=== PATIENT | female | born 1965 | race Caucasian/White ===

== ENCOUNTER 2019-12-24 11:55 | Outpatient (REF) | payer OTHER, SELFPAY ==
[2019-12-24 12:26] LABS: COVID-19 Test Negative (Negative)
== END 2019-12-24 11:56 | disposition home or self-care (01) ==
LOC: HO.LAB 11:55
PROVIDERS: PCP Internal Medicine; Visit Provider Internal Medicine
DX: Z20.828 Contact with and (suspected) exposure to other viral communicable diseases (principal)
CPT/HCPCS: 87635

== ENCOUNTER 2020-04-28 14:39 | Outpatient (REF) | payer OTHER, SELFPAY ==
--- NOTE | ~2020-04-28 | XR_ITS ---
EXAMINATION: XR FOOT, RIGHT CLINICAL INFORMATION: Pain right foot. COMPARISON: None TECHNIQUE: AP, lateral, and oblique views of the right foot. FINDINGS: There is no fracture, dislocation or destructive process. Mild degenerative changes involve the 1st MTP joint with mild joint narrowing and lateral spurring. There is mild medial bunion 1st MTP. No hallux valgus. Small exostosis present lateral distal phalanx. The remainder of the joints show no focal narrowing or erosive changes. The retrocalcaneal recess is preserved. There are posterior and plantar calcaneal spurs. There is a small solitary benign-appearing sclerotic lesion medial neck 5th metatarsal without expansion or periostitis, possibly bone island or sclerotic enchondroma. XR/XR foot RT min 3V IMPRESSION: 1. Mild degenerative changes 1st MTP. No erosive changes. 2. Small posterior and plantar calcaneal spurs. 3. Benign-appearing small sclerotic lesion medial neck fifth metatarsal, possibly bone island or sclerotic enchondroma.
== END 2020-04-28 14:40 | disposition home or self-care (01) ==
LOC: HO.XRAY 14:39
PROVIDERS: PCP Internal Medicine; Visit Provider Orthopaedic Surgery
DX: M79.671 Pain in right foot (principal)
CPT/HCPCS: 73630

== ENCOUNTER 2020-06-19 08:05 | Outpatient (REF) | payer OTHER, SELFPAY ==
[2020-06-19 08:51] LABS: MANUAL DIFF FLAG NO
[2020-06-19 09:01] LABS: Basophils Absolute Auto 0.1 X10*3/uL (0.0-0.2); Basophils Percent Auto 1.5 % (0-2); Eosinophils Absolute Auto 0.5 X10*3/uL (0.0-0.4); Eosinophils Percent Auto 8.7 % (0-4); Hematocrit 42.5 % (37-47); Imm Gran Abs Auto 0.01 X10*3/uL (0.00-0.03); Imm Gran Pct Auto 0.2 % (0.0-0.4); Lymphocytes Absolute Auto 1.6 X10*3/uL (1.2-4.9); Lymphocytes Percent Auto 29.9 % (20-40); Mean Corpuscular HGB Conc 32.9 g/dl (31.0-35.0); Mean Corpuscular Hemoglobin 30.7 pg (27.0-33.0); Mean Corpuscular Volume 93.2 fL (80-98); Monocytes Absolute Auto 0.4 X10*3/uL (0.1-1.2); Neutrophils Absolute Auto 2.7 X10*3/uL (2.0-8.3); Neutrophils Percent Auto 51.7 % (45-73); Platelet Count 256 X10*3/uL (160-400); Red Blood Count 4.56 X10*6/uL (4.20-5.50); White Blood Count 5.3 X10*3/uL (4.8-10.8)
[2020-06-19 09:14] LABS: Alanine Aminotransferase 16 U/L (0-31); Albumin Level 4.3 g/dL (3.5-5.0); Alkaline Phosphatase 70 U/L (39-117); Anion Gap 14 (12-20); Aspartate Amino Transferase 19 U/L (5-31); Bilirubin Total 0.8 mg/dL (0.0-1.0); Blood Urea Nitrogen 10 mg/dL (9-16); Calcium 9.7 mg/dL (8.4-10.2); Carbon Dioxide 30 mmol/L (22-29); Chloride 101 mmol/L (96-108); Cholesterol 278 mg/dL; Estimated Glomerular Filt Rate > 60; Glucose Random 97 mg/dL (60-115); HDL Cholesterol 74 mg/dL; LDL Cholesterol Calculated 179 mg/dl; Potassium 3.9 mmol/L (3.3-5.1); Sodium 141 mmol/L (135-145); Total Protein 7.3 g/dL (6.5-8.0); Triglycerides 128 mg/dL
[2020-06-19 09:34] LABS: Thyroid Stimulating Hormone 1.38 uIU/mL (0.32-4.0); Vitamin D 25-OH Total 38.4 ng/mL (>30)
[2020-06-19 09:50] LABS: Glucose Urine UA NEG (NEG); Leukocyte Esterase Urine NEG (NEG); Nitrite Urine NEG (NEG); Urine Blood NEG (NEG); Urine Ketones NEG (NEG); Urine Protein NEG (NEG-TRACE)
[2020-06-19 09:51] LABS: Appearance Urine CLEAR; Color Urine STRAW
== END 2020-06-19 08:06 | disposition home or self-care (01) ==
LOC: HO.LAB 08:05
PROVIDERS: Absent Provider Internal Medicine; PCP Internal Medicine; Visit Provider Nurse Practitioner Family
DX: Z01.810 Encounter for preprocedural cardiovascular examination (principal); I47.2 Ventricular tachycardia; I10 Essential (primary) hypertension; E78.2 Mixed hyperlipidemia; E55.9 Vitamin D deficiency, unspecified; E78.5 Hyperlipidemia, unspecified; Z98.890 Other specified postprocedural states
CPT/HCPCS: 36415; 80053; 80061; 81003; 82306; 84443; 85025; 93005

== ENCOUNTER 2021-02-02 08:16 | Outpatient (REF) | payer OTHER, SELFPAY ==
[2021-02-02 09:11] LABS: Alanine Aminotransferase 18 U/L (0-31); Albumin Level 3.9 g/dL (3.5-5.0); Alkaline Phosphatase 63 U/L (39-117); Anion Gap 9 (12-20); Aspartate Amino Transferase 18 U/L (5-31); Bilirubin Total 0.4 mg/dL (0.0-1.0); Blood Urea Nitrogen 16 mg/dL (9-16); Calcium 9.7 mg/dL (8.4-10.2); Carbon Dioxide 32 mmol/L (22-29); Chloride 102 mmol/L (96-108); Cholesterol 252 mg/dL; Estimated Glomerular Filt Rate > 60; Glucose Random 99 mg/dL (60-115); HDL Cholesterol 75 mg/dL; LDL Cholesterol Calculated 155 mg/dl; Sodium 139 mmol/L (135-145); Total Protein 6.7 g/dL (6.5-8.0); Triglycerides 113 mg/dL
== END 2021-02-02 08:17 | disposition home or self-care (01) ==
LOC: HO.LAB 08:16
PROVIDERS: Absent Provider Internal Medicine; PCP Internal Medicine; Visit Provider Orthopaedic Surgery
DX: E78.00 Pure hypercholesterolemia, unspecified (principal); I10 Essential (primary) hypertension
CPT/HCPCS: 36415; 80053; 80061; 83735

== ENCOUNTER 2021-02-17 13:08 | Outpatient (REF) | payer OTHER, SELFPAY ==
[2021-02-17 13:18] LABS: MANUAL DIFF FLAG NO
[2021-02-17 13:23] LABS: Basophils Absolute Auto 0.1 X10*3/uL (0.0-0.2); Eosinophils Absolute Auto 0.4 X10*3/uL (0.0-0.4); Eosinophils Percent Auto 5.1 % (0-4); Hematocrit 42.6 % (37.0-47.0); Hemoglobin 14.3 g/dl (12.0-16.0); Imm Gran Abs Auto 0.03 X10*3/uL (0.00-0.03); Imm Gran Pct Auto 0.4 % (0.0-0.4); Lymphocytes Absolute Auto 2.4 X10*3/uL (1.2-4.9); Lymphocytes Percent Auto 33.7 % (20-40); Mean Corpuscular HGB Conc 33.6 g/dl (31.0-35.0); Mean Corpuscular Hemoglobin 32.1 pg (27.0-33.0); Mean Corpuscular Volume 95.7 fL (80.0-98.0); Mean Platelet Volume 10.6 fL (9.4-12.3); Monocytes Absolute Auto 0.5 X10*3/uL (0.1-1.2); Monocytes Percent Auto 6.7 % (2-11); Neutrophils Absolute Auto 3.7 x10*3/uL (2.0-8.3); Neutrophils Percent Auto 53.1 % (45-73); Platelet Count 271 X10*3/uL (160-400); Red Blood Count 4.45 X10*6/uL (4.20-5.50); Red Cell Distribution Width 12.1 % (11.0-16.0)
== END 2021-02-17 13:09 | disposition home or self-care (01) ==
LOC: HO.LAB 13:08
PROVIDERS: PCP Internal Medicine; Visit Provider Internal Medicine
DX: Z01.818 Encounter for other preprocedural examination (principal); I10 Essential (primary) hypertension
CPT/HCPCS: 36415; 85025

== ENCOUNTER 2021-12-02 12:52 | Day surgery (SDC) | payer OTHER, SELFPAY ==
[2021-11-25 14:19] VITALS: BMI 32.3
--- NOTE | 2021-12-01 12:09 | HO.ANESPROP2 ---
Documented by User: Balbina Elizondo NP 12/01/21 12:09 HPI - Anesthesia Eval Consult details Narrative: 56yo F for Colonoscopy PMFSH Active Problems Active Problems: All Active Problems (Updated 06/19/20 @ 12:45 by Kelton Novoa MD) Preoperative cardiovascular examination (Acute) RVOT ventricular tachycardia (Acute) HTN (hypertension) (Acute) Past Medical History Medical History HTN (hypertension) RVOT ventricular tachycardia Family History Family History Father CVD (cardiovascular disease) Mother Cancer Surgical History Surgical History H/O colonoscopy History of bunionectomy History of cardiac radiofrequency ablation Hx of arthroscopy of knee Hx of dilation and curettage Hx of shoulder surgery Hx of tubal ligation Social History Social History Patient Tobacco Use Status: Former Tobacco user Quit Date: >10 years ago Tobacco use type: Cigarette Use of substances other than those prescribed or required for medical reasons: No Are you DNR?: No Advance Directives: No Advance Directives Information Provided: Yes Meds Allergies Allergy/AdvReac Type Severity Reaction Status Date / Time ibuprofen [Ibuprofen] Allergy Mild GI UPSET Unverified 11/07/19 15:32 NSAID (execpt aleve) Allergy Unknown Irritates Uncoded 03/10/16 00:00 stomach Home Medications Medication Instructions Recorded Confirmed Last Taken Type cholecalciferol (vitamin D3) 25 25 mcg PO DAILY 06/19/20 11/25/21 Unknown History mcg (1,000 unit) capsule Exam Exam Date and Time: December 01, 2021 1209 Height,Weight and Vital Signs: Height 5 ft 5 in Weight 87.997 kg Assessment and Plan Assessment Anesthesia Assessment: Chart Reviewed Documented by User: Christian Doherty MD 12/02/21 13:45 [facility] Past Medical History Medical History HTN (hypertension) RVOT ventricular tachycardia Family History Family History Father CVD (cardiovascular disease) Mother Cancer Family history of problems with anesthesia: No Surgical History Surgical History H/O colonoscopy History of bunionectomy History of cardiac radiofrequency ablation Hx of arthroscopy of knee Hx of dilation and curettage Hx of shoulder surgery Hx of tubal ligation History of Problems with Anesthesia: No Social History Social History Patient Tobacco Use Status: Former Tobacco user Quit Date: >10 years ago Tobacco use type: Cigarette Use of substances other than those prescribed or required for medical reasons: No Are you DNR?: No Advance Directives: No Advance Directives Information Provided: Yes Meds Allergies Allergy/AdvReac Type Severity Reaction Status Date / Time ibuprofen [Ibuprofen] Allergy Mild GI UPSET Unverified 11/07/19 15:32 NSAID (execpt aleve) Allergy Unknown Irritates Uncoded 03/10/16 00:00 stomach Home Medications Medication Instructions Recorded Confirmed Last Taken Type cholecalciferol (vitamin D3) 25 25 mcg PO DAILY 06/19/20 11/25/21 Unknown History mcg (1,000 unit) capsule Exam Airway Mallampati Class: II TM Dist: >3cm Neck ROM: Full Loose/Missing/Broken Teeth: Yes (temporary crown upper molar not loose) Heart: rrr+s1s2 Lungs: cta b/l Assessment and Plan Assessment Anesthesia Assessment: Anesthesia Plan Discussed Final Anesthetic Review Family History of Problems with Anesthesia: No History of Problems with Anesthesia: No NPO: Yes ASA Class: II Final Preanesthetic Review: No Changes in Pt Med Stat, Meds/Allgs Chart Reviewed, Consent Obtained/Reviewed and Anes Risks/Benef Reviewed Patient Risk: Intermediate Procedure Risk: Low Assessment/Block/Sedation in SS: Assess/Block/Sedation-SS Anesthetic Plan Anesthetic Plan: MAC: and Agree w/ Assess. and Plan Disposition: Standard PACU
[2021-12-02 13:28] VITALS: BMI 31.6
[2021-12-02 13:33] VITALS: BP 145/82; PULSE 73; RESP 16; TEMP 36.6; O2SAT 98
[2021-12-02] MEDS: Lactated Ringers 1,000 ML 100 ML IVCONT (13:51)
--- NOTE | 2021-12-02 14:28 | HO.ANESPROP2 ---
[facility] Active Problems Active Problems: All Active Problems (Updated 06/19/20 @ 12:45 by Kelton Novoa MD) Preoperative cardiovascular examination (Acute) RVOT ventricular tachycardia (Acute) HTN (hypertension) (Acute) Past Medical History Medical History HTN (hypertension) RVOT ventricular tachycardia Family History Family History Father CVD (cardiovascular disease) Mother Cancer Family history of problems with anesthesia: No Surgical History Surgical History H/O colonoscopy History of bunionectomy History of cardiac radiofrequency ablation Hx of arthroscopy of knee Hx of dilation and curettage Hx of shoulder surgery Hx of tubal ligation History of Problems with Anesthesia: No Social History Social History Patient Tobacco Use Status: Former Tobacco user Quit Date: >10 years ago Tobacco use type: Cigarette Use of substances other than those prescribed or required for medical reasons: No Are you DNR?: No Advance Directives: No Advance Directives Information Provided: Yes Meds Allergies Allergy/AdvReac Type Severity Reaction Status Date / Time ibuprofen [Ibuprofen] Allergy Mild GI UPSET Verified 12/02/21 13:51 NSAID (execpt aleve) Allergy Unknown Irritates Uncoded 03/10/16 00:00 stomach Active Medications: Current Medications Acetaminophen (Acetaminophen 325 Mg Tablet) 650 mg PO ONCE PRN PRN Reason: Pain, Mild (Pain Scale 1-3) Lactated Ringer's (Lr) 1,000 mls @ 100 mls/hr IVCONT .Q10H MARLENE Last Admin: 12/02/21 13:51 Dose: 100 mls/hr Ondansetron HCl (Ondansetron Hcl 4 Mg/2 Ml Vial) 4 mg IVPUSH ONCE PRN PRN Reason: Nausea and Vomiting Sodium Biphosphate/Sodium Phosphate (Sodium Phosphate,Simpson-Dibasic 133 Ml Enema) 133 ml HI ONCE PRN PRN Reason: Poor Colonoscopy Prep Results Home Medications Medication Instructions Recorded Confirmed Last Taken Type cholecalciferol (vitamin D3) 25 25 mcg PO DAILY 06/19/20 11/25/21 Unknown History mcg (1,000 unit) capsule Exam Exam Date and Time: December 02, 2021 1428 Height,Weight and Vital Signs: Height 5 ft 5 in Weight 86.183 kg Last Vital Signs Temp 97.8 F 12/02/21 13:33 Pulse 73 12/02/21 13:33 Resp 16 12/02/21 13:33 BP 145/82 H 12/02/21 13:33 Pulse Ox 98 12/02/21 13:33 O2 Del Method 12/02/21 13:33 Airway Mallampati Class: I TM Dist: >3cm Neck ROM: Full Assessment and Plan Assessment Anesthesia Assessment: Anesthesia Plan Discussed and Chart Reviewed Final Anesthetic Review Family History of Problems with Anesthesia: No History of Problems with Anesthesia: No NPO: Yes ASA Class: II Final Preanesthetic Review: No Changes in Pt Med Stat, Meds/Allgs Chart Reviewed, Consent Obtained/Reviewed and Anes Risks/Benef Reviewed Patient Risk: Low Procedure Risk: Low Anesthetic Plan Anesthetic Plan: GA Disposition: Standard PACU
[2021-12-02 15:12] VITALS: BP 121/68; PULSE 62; RESP 15; TEMP 36.2; O2SAT 99
--- NOTE | 2021-12-02 15:19 | PM.OP ---
Brief Operative Note Date of Service: 12/02/21 Pre-op diagnosis: Screening, Family hx of colon cancer, rectal bleeding Post-op diagnosis: other (Colon polyps) Procedure: Colonoscopy to the cecum and TI with cold snare polypectomy of polyp at 40cm, and bx/removal of ascending colon polyps Surgeon: Onel Barrientos Anesthesia: MAC Was an Stripping Cutter And Winder used for this Procedure?: No Estimated blood loss (mL): 2.0 Pathology: other (A. Ascending colon polyps B. Polyp at 40cm) Condition: stable Disposition: PACU
[2021-12-02 15:27] VITALS: BP 118/66; PULSE 63; RESP 16; TEMP 36.2; O2SAT 100
--- NOTE | 2021-12-03 14:25 | OP_ITS ---
SURGEON: Onel Barrientos MD INDICATIONS: The patient presents for evaluation of colorectal cancer screening, family history of colon cancer, and occasional hematochezia. Full consent has been obtained from her for this, including risks of bleeding and perforation. PREOPERATIVE DIAGNOSIS: POSTOPERATIVE DIAGNOSIS: PROCEDURE PERFORMED: Colonoscopy to the cecum and terminal ileum with cold snare polypectomy, and biopsy and removal of polyps. ESTIMATED BLOOD LOSS: COMPLICATIONS: ANESTHESIA: Monitored anesthesia care. ASSISTANTS: SPECIMENS: PREOPERATIVE DIAGNOSES: Colorectal cancer screening, family history colon cancer, intermittent hematochezia. POSTOPERATIVE DIAGNOSES: Colorectal cancer screening, family history colon cancer, intermittent hematochezia, small colon polyps, sigmoid diverticulosis, internal hemorrhoids. DESCRIPTION OF PROCEDURE: The patient was placed in the left lateral decubitus position. The digital rectal exam revealed no abnormalities. The Olympus video pediatric colonoscope was entered into the rectum and advanced easily to the cecum. Once in the cecum, I did identify normal-appearing cecal pouch with appendiceal orifice and a normal-appearing ileocecal valve. The terminal ileum was cannulated and appeared normal. The scope was withdrawn back into the colon. The entire cecum and ileocecal valve appeared normal. The scope was then slowly withdrawn assessing all mucosal surfaces carefully. Preparation was excellent. In the proximal ascending colon, there were 2 flat less than 5 mm polyps, which were each biopsied and completely removed with cold biopsy forceps and placed in the same container. At 40 cm, there was an approximately 5 or 6 mm grossly adenomatous polyp, which was removed by cold snare polypectomy. This was recovered by suction, although pieces that were placed in the specimen container were not definitively consistent with tissue. I did not visualize any other polyps, colitis, or angiodysplasia. There was a mild amount of sigmoid diverticulosis. In the rectum, the scope was retroflexed visualizing internal hemorrhoids, but no other pathology. The rectal mucosa appeared normal. The scope was straightened and withdrawn from the patient. She tolerated the procedure well and was returned to the recovery area in stable condition. IMPRESSION: 1. Small colon polyps. 2. Diverticulosis. 3. Internal hemorrhoids. PLAN: Even if today's colon polyps are not adenomatous, I would still recommend a repeat colonoscopy in 5 years for further screening given her family history of colon cancer. She was advised not to use any aspirin or NSAIDs for 1 week. She was advised to use some preparation H or Anusol suppositories as needed for any internal hemorrhoidal bleeding. She was also advised that she could use some daily fiber supplement and/or stool softener to prevent constipation and straining. She will otherwise see me on a p.r.n. basis. This has been discussed with her . MD DAMARIS Moses/MJ / [id number] MTDD
== END 2021-12-02 15:58 | disposition home or self-care (01) ==
PROVIDERS: PCP Internal Medicine; Visit Provider Internal Medicine
PROC: 0DJD8ZZ Inspection of Lower Intestinal Tract, Via Natural or Artificial Opening Endoscopic (ICD-10-PCS; CPT 45378; principal; 2021-12-02 14:00)
DX: Z12.11 Encounter for screening for malignant neoplasm of colon (principal); Z80.0 Family history of malignant neoplasm of digestive organs; D12.2 Benign neoplasm of ascending colon; D12.5 Benign neoplasm of sigmoid colon; K57.30 Diverticulosis of large intestine without perforation or abscess without bleeding; K64.8 Other hemorrhoids; I10 Essential (primary) hypertension; I47.29 Other ventricular tachycardia; Z79.899 Other long term (current) drug therapy; Z88.8 Allergy status to other drugs, medicaments and biological substances; Z98.51 Tubal ligation status; Z87.891 Personal history of nicotine dependence
CPT/HCPCS: 45385; 45380; 88305

== ENCOUNTER 2021-12-14 11:18 | Outpatient (REF) | payer OTHER, SELFPAY ==
[2021-12-14 11:38] LABS: MANUAL DIFF FLAG NO
[2021-12-14 12:50] LABS: Basophils Absolute Auto 0.1 X10*3/uL (0.0-0.2); Basophils Percent Auto 1.2 % (0-2); Eosinophils Absolute Auto 0.3 X10*3/uL (0.0-0.4); Eosinophils Percent Auto 4.3 % (0-4); Hematocrit 42.3 % (37.0-47.0); Hemoglobin 14.3 g/dl (12.0-16.0); Imm Gran Abs Auto 0.02 X10*3/uL (0.00-0.03); Imm Gran Pct Auto 0.3 % (0.0-0.4); Lymphocytes Absolute Auto 1.8 X10*3/uL (1.2-4.9); Lymphocytes Percent Auto 27.2 % (20-40); Mean Corpuscular HGB Conc 33.8 g/dl (31.0-35.0); Mean Corpuscular Hemoglobin 31.6 pg (27.0-33.0); Mean Corpuscular Volume 93.6 fL (80.0-98.0); Mean Platelet Volume 12.1 fL (9.4-12.3); Monocytes Absolute Auto 0.5 X10*3/uL (0.1-1.2); Monocytes Percent Auto 8.4 % (2-11); Neutrophils Absolute Auto 3.8 x10*3/uL (2.0-8.3); Neutrophils Percent Auto 58.6 % (45-73); Platelet Count 258 X10*3/uL (160-400); Red Blood Count 4.52 X10*6/uL (4.20-5.50); Red Cell Distribution Width 12.1 % (11.0-16.0); White Blood Count 6.4 X10*3/uL (4.8-10.8)
[2021-12-14 12:53] LABS: Appearance Urine Clear; Color Urine Yellow; Glucose Urine UA Negative (Negative); Leukocyte Esterase Urine Negative (Negative); Nitrite Urine Negative (Negative); PH 7.5 (5.0-9.0); Urine Blood Negative (Negative); Urine Ketones Negative (Negative); Urine Protein Negative (Neg-Trace)
[2021-12-14 13:35] LABS: Estimated Average Glucose 103 mg/dL; Hemoglobin A1c % 5.2 %
[2021-12-14 13:36] LABS: Alanine Aminotransferase 20 U/L (0-31); Albumin Level 4.4 g/dL (3.5-5.0); Alkaline Phosphatase 60 U/L (39-117); Anion Gap 15 (12-20); Aspartate Amino Transferase 19 U/L (5-31); Bilirubin Total 0.5 mg/dL (0.0-1.0); Blood Urea Nitrogen 16 mg/dL (9-16); Calcium 9.8 mg/dL (8.4-10.2); Carbon Dioxide 29 mmol/L (22-29); Chloride 100 mmol/L (96-108); Cholesterol 285 mg/dL; Estimated Glomerular Filt Rate > 60; Glucose Random 89 mg/dL (60-115); HDL Cholesterol 80 mg/dL; LDL Cholesterol Calculated 175 mg/dl; Potassium 4.3 mmol/L (3.3-5.1); Sodium 140 mmol/L (135-145); Total Protein 7.3 g/dL (6.5-8.0); Triglycerides 152 mg/dL
[2021-12-14 14:00] LABS: Thyroid Stimulating Hormone 2.13 uIU/mL (0.32-4.0); Vitamin D 25-OH Total 36.4 ng/mL (>30)
== END 2021-12-14 11:19 | disposition home or self-care (01) ==
LOC: HO.LAB 11:18
PROVIDERS: PCP Internal Medicine; Visit Provider Internal Medicine
DX: E78.00 Pure hypercholesterolemia, unspecified (principal); I10 Essential (primary) hypertension; R73.01 Impaired fasting glucose
CPT/HCPCS: 36415; 80053; 80061; 81003; 82306; 83036; 84439; 84443; 85025

== ENCOUNTER 2022-01-17 10:02 | Outpatient (REF) | payer OTHER, SELFPAY ==
[2022-01-19 13:13] LABS: Anti Nuclear Antibody Screen NEGATIVE (NEGATIVE)
== END 2022-01-17 10:03 | disposition home or self-care (01) ==
LOC: HO.LAB 10:02
PROVIDERS: PCP Internal Medicine; Visit Provider Internal Medicine
DX: L65.9 Nonscarring hair loss, unspecified (principal)
CPT/HCPCS: 36415; 86038; 86039

== ENCOUNTER 2022-09-12 12:37 | Outpatient (AMB) | payer OTHER, SELFPAY ==
[2022-09-12 12:40] VITALS: BP 118/70; PULSE 53; BMI 30.1
--- NOTE | 2022-09-12 12:40 | MHC.OFFVIS ---
Intake Vital Signs 09/12/22 12:40 Height 5 ft 5 in Weight 180 lb 12.465 oz BMI 30.1 BP 118/70 Blood Pressure Location Lt brachial Position Sitting Pulse 53 Intake Visit Reasons: overdue follow-up with ekg Intake Note: overdue f/u Small Equipment Operator Required: No Allergies ibuprofen [Ibuprofen] Allergy (Mild, Verified 09/12/22 12:49) GI UPSET NSAID (execpt aleve) Allergy (Unknown, Uncoded 03/10/16 00:00) Irritates stomach Medication List - Last Reconciled 09/12/22 by Kelton Novoa MD cholecalciferol (vitamin D3) 25 mcg PO DAILY hydrochlorothiazide 25 mg PO DAILY 90 days metoprolol succinate ER (Toprol XL) 25 mg PO DAILY HPI HPI Comments History of Present Illness Details Nicole comes for follow-up. She occasionally as skipped heartbeats and palpitations. No prolonged palpitations. No lightheadedness, syncope. Patient denies any exertional chest pain or shortness of breath. Remains active. Takes all her medications. No fatigue. Blood pressure is generally well controlled. [facility] Medical History HTN (hypertension) RVOT ventricular tachycardia Surgical History H/O colonoscopy History of bunionectomy History of cardiac radiofrequency ablation Hx of arthroscopy of knee Hx of dilation and curettage Hx of shoulder surgery Hx of tubal ligation Family History Father CVD (cardiovascular disease) Mother Cancer Social History Patient Tobacco Use Status: Former Tobacco user Quit Date: >10 years ago Tobacco use type: Cigarette Review of Systems ENT Reports dizziness Card Denies chest pain, Denies chest pain at rest, Denies chest pain with activity, Denies rapid heart rate, Denies pedal edema, Denies edema, Denies leg edema, Denies lightheadedness, Denies palpitations, Denies dyspnea, Denies dyspnea on exertion and Denies orthopnea Resp Denies cough, Denies dyspnea and Denies dyspnea on exertion GI Denies hematochezia and Denies change in stool character Musc Denies abnormal gait, Reports limited range of motion, Reports muscle cramps, Denies muscle weakness, Denies numbness, Denies radiating pain into limb, Denies stiffness and Denies tingling Neuro Denies abnormal gait, Reports dizziness, Denies numbness and Denies tingling Endo Denies palpitations Physical Exam Vital Signs: Last Vital Signs Pulse 53 09/12/22 12:40 BP 118/70 09/12/22 12:40 BMI result Body Mass Index 30.1 Const General: cooperative, comfortable, alert, awake and well groomed Nutritional Appearance: overweight Orientation/consciousness: patient oriented x3 Limitations: no limitations Neck Neck: Yes trachea midline, Yes supple and Yes no JVD Chest Chest palpation & inspection: normal inspection of the chest Resp Effort & Inspection: normal respiratory effort Auscultation: clear to auscultation bilaterally Cardio Jugular venous distension: no JVD Palpation: normal PMI Rate: regular rate Rhythm: regular rhythm Heart sounds: S1 normal heart sound present and S2 normal heart sound present GI Auscultation: normal bowel sounds Neuro General: patient oriented x3 and no focal motor deficits Extrem General: Yes other (Left-sided significant varicosities) Psych Appearance: grossly normal Office Procedures EKG Details: EKG shows sinus bradycardia with low-voltage QRS otherwise normal EKG [id number], Complete Assessment & Plan Assessment & Plan (1) RVOT ventricular tachycardia: Comment: Unsuccessful ablation in July 2014. Repeat ablation aborted. Patient control with medical therapy with Toprol Code(s): I47.2 - Ventricular tachycardia Plan: Patient no recurrent symptoms on metoprolol therapy. 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 She has had failed ablation in the past. Has done well with metoprolol therapy. Continue the same. Advised to avoid stimulants. Advised to call me with worsening symptoms. (2) HTN (hypertension): Code(s): I10 - Essential (primary) hypertension Plan: Hypertension which is currently well optimized. Continue current therapy with hydrochlorothiazide metoprolol. Low-salt diet was discussed. Continue participate in stress mitigation strategies. Advised to intermittently measure blood pressure at home and maintain a log. Goal blood pressure less than 130/84. Advised to call with any other cardiovascular symptoms. Will follow up in the clinic in 2 years time, sooner p.r.n. Medications: Changed From metoprolol succinate ER (Toprol XL) Please call and schedule an appt with cardiology - due 50 mg PO DAILY 90 tabs 0RF To metoprolol succinate ER (Toprol XL) Please call and schedule an appt with cardiology - due 25 mg PO DAILY Coding Level of Care Code Est Pt Level 4 (39237) Diagnoses RVOT ventricular tachycardia I47.2 HTN (hypertension) I10 CPT Codes EKG - CPT: 22135-[id number], Complete ([id number])
== END 2022-09-12 13:02 | disposition home or self-care (01) ==
PROVIDERS: Visit Provider Internal Medicine Cardiovascular Disease
DX: I47.20 Ventricular tachycardia, unspecified (principal); I10 Essential (primary) hypertension
CPT/HCPCS: 93010; 99214

== ENCOUNTER → 2022-09-12 12:37 | Outpatient (BNVA) | payer OTHER, SELFPAY | PROVIDERS: Visit Provider Internal Medicine Cardiovascular Disease | DX: I47.20 Ventricular tachycardia, unspecified (principal); I10 Essential (primary) hypertension | CPT/HCPCS: 93005 ==

== ENCOUNTER 2024-10-01 13:25 | Outpatient (AMB) | payer BC, SELFPAY ==
--- NOTE | 2024-10-01 13:27 | A.OFFVIS_ITS ---
Vital Signs 10/01/24 13:28 Height 5 ft 5 in Weight 149 lb BMI 24.8 BP 120/80 Blood Pressure Location Lt brachial Position Sitting Pulse 60 Intake Visit Reasons: 2 year fu Intake Note: 2 year follow-up with ekg feeling good Installer Soft Top Required: No Allergies ibuprofen (Ibuprofen) Allergy (Mild, Verified 09/12/22 12:49) GI UPSET NSAID (execpt aleve) Allergy (Unknown, Uncoded 03/10/16 00:00) Irritates stomach Medication List - Last Reconciled 10/01/24 by Kelton Novoa MD cholecalciferol (vitamin D3) 25 mcg PO DAILY hydrochlorothiazide 25 mg PO DAILY metoprolol succinate ER 25 mg PO DAILY Saccharomyces boulardii (Daily Probiotic (S. boulardii)) 250 mg PO BID HPI Comments Details: Peyton comes for follow-up. Patient has been doing very well. She has been very active and denies any exertional chest pain or shortness of breath. Denies lightheadedness, syncope. Tolerating her medications well. Blood pressures been well controlled. She has been participate in aggressive lifestyle modification has lost significant amount of weight. [facility] Medical History (Updated 10/01/24 @ 14:28 by Kelton Novoa MD) RVOT ventricular tachycardia HTN (hypertension) Surgical History Hx of dilation and curettage Hx of tubal ligation Hx of shoulder surgery History of bunionectomy Hx of arthroscopy of knee H/O colonoscopy History of cardiac radiofrequency ablation Family History Father CVD (cardiovascular disease) Mother Cancer Social History Patient Tobacco Use Status: Former Tobacco user Tobacco use type: Cigarette Review of Systems Const Denies chills, Denies fatigue, Denies fever(s), Denies frequent falls, Denies weakness, Denies weight gain and Denies weight loss ENT Denies dizziness Card Denies chest pain, Denies leg edema, Denies lightheadedness, Denies palpitations, Denies dyspnea, Denies dyspnea on exertion, Denies orthopnea and Denies other (loss of consciousness) Resp Denies cough, Denies dyspnea and Denies dyspnea on exertion GI Denies hematochezia and Denies change in stool character Musc Denies abnormal gait, Denies muscle weakness, Denies numbness, Denies radiating pain into limb and Denies tingling Neuro Denies abnormal gait, Denies dizziness, Denies frequent falls, Denies numbness, Denies tingling and Denies weakness Endo Denies fatigue and Denies palpitations Physical Exam Vital Signs: Last Vital Signs Pulse 60 10/01/24 13:28 BP 120/80 10/01/24 13:28 BMI result Body Mass Index 24.8 Const General: cooperative, comfortable, alert, awake and well groomed Nutritional Appearance: overweight Orientation/consciousness: patient oriented x3 Limitations: no limitations Neck Neck: Yes trachea midline, Yes supple and Yes no JVD Chest Chest palpation & inspection: normal inspection of the chest Resp Effort & Inspection: normal respiratory effort Auscultation: clear to auscultation bilaterally Cardio Jugular venous distension: no JVD Palpation: normal PMI Rate: regular rate Rhythm: regular rhythm Heart sounds: S1 normal heart sound present and S2 normal heart sound present GI Auscultation: normal bowel sounds Neuro General: patient oriented x3 and no focal motor deficits Extrem General: Yes other (Left-sided significant varicosities) Psych Appearance: grossly normal Assessment & Plan Assessment & Plan (1) RVOT ventricular tachycardia: Comment: Unsuccessful ablation in July 2014. Repeat ablation aborted. Patient control with medical therapy with Toprol Code(s): I47.2 - Ventricular tachycardia Category: Medical Plan: Prior RVOT ventricular tachycardia failed ablation. Currently on metoprolol therapy without any recurrent symptoms. Continue the same. Avoidance of stimulants was discussed. Encouraged to continue to participate in regular physical activity without over exerting herself. If she gets recurrent symptoms she is advised to call my office. (2) HTN (hypertension): Code(s): I10 - Essential (primary) hypertension Category: Medical Plan: Hypertension which is currently well optimized on current medications with hydrochlorothiazide metoprolol. Continue the same. Importance of good blood pressure control was discussed and she understands. Low-salt diet was discussed. Advised to monitor blood pressure intermittently at home and mainta in a log. Target goal blood pressure less than 130/84. Continue with current lifestyle modification. Will follow up in the clinic in 2 years time, sooner p.r.n.. Thank you for allowing me to partake in her care Medications: Changed From metoprolol succinate ER 50 mg PO DAILY 90 tabs 3RF To metoprolol succinate ER 25 mg PO DAILY Coding Level of Care Code Est Pt Level 4 (21571) Complex EM visit Add On G2211 Diagnoses RVOT ventricular tachycardia I47.2 HTN (hypertension) I10
[2024-10-01 13:28] VITALS: BP 120/80; PULSE 60; BMI 24.8
--- OUTSIDE RECORDS SUMMARY | 2024-10-01 14:15 | XMS_ITS | Patient Health Record ---
[facility] Address [address] [place] [address] Care Team Providers Care Proposal Analyst Name Role Phone Demarco Ott MD Primary Care Provider Anup [place] Unavailable [phone] Allergies Allergen (clinical drug ingredient) Drug/Non Drug Allergy documented on EMR Reaction Allergy Type Onset Date Status ibuprofen Advil GI upset Drug Allergy Active Motrin GI upset Drug Allergy Active Reason For Referral No Information Medications Medication SIG (Take, Route, Frequency, Duration) Notes Start Date End Date Status Physical Therapy . . . 2-3x/week; Duration: 3-4 weeks 11/08/2018 Active Night Splint AFO - L1930 as directed 11/08/2018 Active Aleve Not-Taking Custom Orthotics as directed 11/08/2018 Active [facility] Active hydroCHLOROthiazide 25 MG 1 capsule Oral ly Once a day Active Benadryl 25 MG 2 Orally every 6 hrs ; Duration: as needed 01/29/2011 Not-Taking Vitamin D 1000 UNIT 1 tablet Orally Once a day; Duration: 30 day(s) Active Prempro 0.625-5 MG 1 tablet Orally Once a day Not-Taking Lisinopril 10 MG 1 tablet Orally Once a day Not-Taking Toprol XL 100 MG 1 tablet Orally Once a day Active Nabumetone 750 MG 1 tablet Orally ONCE A DAY WITH FOOD; Duration: 30 day(s) 12/17/2010 Not-Taking Keflex Not-Taking Social History Tobacco Use: Social History Observation Description Date Details (start date - stop date) Former Smoker NA - NA Tobacco Use/Smoking Question Answer Notes Are you a: former smoker Additional Findings: Tobacco Non-User Current no n-smoker Alcohol Screen Question Answer Notes Did you have a drink containing alcohol in the p ast year? Yes Points 0 Interpretation Negative Tobacco use other than smoking: Question Answer Notes Are you an other tobacco user? No Problems Problem Type SNOMED Code ICD Code Onset Dates Problem Status W/U Status Risk Notes Problem Hallux valgus (acquired), right foot (M20.11) Active confirmed Problem Pain in limb (02898099) Pain in unspecified toe(s) (M79.676) Active confirmed Plan Of Treatment Pending Test Test Name Order Date X ray : Foot, left 2V 11/01/2010 X ray : Foot, right 3V 11/08/2018 [id number] Plate 03/12/2015 [id number] SKIN/TISSUE 03/26/[id number] TENDON SHEATH/LIGAMENT 0 11/08/2018 Insurance Providers Payer Name Payer Address Payer Phone Subscriber Number Group Number Insured Name Patient Relationship to Insured Coverage Start Date Coverage End Date [facility] [address] [address] [place] [address] [phone] [id number] Peyton Peterson Self - patient is the insured Medical (General) History Medical History History ICD Code Chicken pox High blood pressure Cataracts Surgical History Surgery Date(Month/Year) dilatation and curettage 1996 foot surgery/bunion/topaz 2010 Left foot Molina's Neuroma 1981 tonsillectomy 1974 tubal ligation 1998 cardiac ablation 08/19/2014 Bilateral cataracts 04/2017
--- OUTSIDE RECORDS SUMMARY | 2024-10-01 14:15 | XMS_ITS | Encounter Summary ---
Author Organization [facility] Address [address] [place] [id number] Care Team Providers Care Parking Enforcement Specialist Name Role Phone Provider, Generic External Data Primary Care Pro vider Unavailable Encounter Details Date Type Department Care Team (Late st Contact Info) Description 03/26/2021 Orders Only [facility] COVID Drive Through Testing at [address] [place] [id number] Sandee Hall, RN [address] [place] [address] COVID (Primary Dx) Social History Tobacco Use Types Packs/Day Years Used Date Smoking Tobacco: Never Assessed Comments Unknown Sex and Gender Information Value Date Recorded Sex Assigned at Not on file Legal Sex Female 2:47 PM EST Gender Identity Not on file Sexual Orientation Not on file documented as of this encounter Plan of Treatment Not on file documented as of this encounter Results * Covid-19 (Community) (03/26/2021 11:11 AM EST) Covid-19 Negative Negative 03/26/2021 2:46 PM EST [facility] Comment: The [place] Fusion SARS-CoV-2 Assay is a real-time RT-PCR in vitro diagnostic test intended for the qualitative detection of RNA from SARS-CoV-2 swab specimens obtained from individuals who meet COVID-19 clinical and/or epidemiological criteria. The [place] Fusion SARS-CoV-2 Assay is for use only under Emergency Use Authorization (EUA) in the US laboratories certified under the Clinical Laboratories Improvement Amendments of 1988 (CLIA, 42 U.S.C 263a), to perform high complexity tests. Positive results are indicative of the presence of SARS-CoV-2 RNA, clinical correlation with patient history and other diagnostic information is necessary to determine patient infection status. Positive results do not rule out bacterial infection or co-infection with other viruses. Negative results do not preclude SARS-CoV-2 infection and should not be used as the sole basis for patient management decisions. Negative results must be combined with other clinical observations, patient history and epidemiological information. Invalid results: Please submit another specimen if clinically indicated. The [place] Fusion SARS-CoV-2 letter of Authorization, along with the authorized Fact Sheet for Healthcare Providers, the authorized Fact Sheet for patients, and authorized labeling are available on the FDA website: For patients: https://www.fda.gov/MEDIA/814214/DOWNLOAD For healthcare providers: https://www.fda.gov/media/802942/download Swab (Nares) Non-blood Collection / Unknown 03/26/2021 11:11 AM EST 03/26/2021 11:53 AM EST Sherman Millard MD LAB MICROBIOLOGY - GENERAL ORDER TAYLOR Final Result Performing Organization Address City/State/[place] Co de Phone Number [address] [phone] documented in this encounter Visit Diagnoses Diagnosis COVID- Primary documented in this encounter Additional Health Concerns Infection Onset Date Last Indicated Resolved Time COVID-19 Rule-Out 03/26/2021 03/26/2021 03/26/2021 2:46 PM EST documented as of this encounter Care Teams Parking Enforcement Specialist Relationship Specialty Start Date End Date Provider, Generic External Data 0 PCP - General 01/02/20 documented as of this encounter
--- OUTSIDE RECORDS SUMMARY | 2024-10-01 14:15 | XMS_ITS | Encounter Summary ---
Author Organization [facility] Address [address] [address] Phone Care Team Providers Care Lead Supply Worker Name Role Phone Demarco Ott MD Primary Care Provider [phone] Demarco Ott MD Unavailable [phone] Reason for Referral * Consultation (Within 3 days (urgent)) - New Request Specialty Diagnoses / Procedures Referred By Carloz randhawa Referred To Contact Diagnoses Squamous cell carcinoma of skin of right upper limb, including shoulder Bina Wilks PA-C [address] [place] [phone] Phone: tel: fax: [email or web address] Anshu Mena MD [facility] [address] [address] Phone: tel: fax: Referral ID Status Reason Start Date Expiration Date V isits Requested Visits Authorized [id number] New Request 09/26/2024 09/27/2025 1 1 Reason for Visit * Reason Onset Date Comments Referral 09/26/2024 [facility] + [facility] req uesting new referral as visits on existing referral have been used Encounter Details Date Type Department Care Team ([facility] Contact Info) Description 09/26/2024 Telephone [facility] Internal Medicine [address] [place] [address] Demarco Ott MD [address] [place] [address] [email or web address] Referral ([facility] + pt requesting new referral as visits on existing referral have been used) Social History Tobacco Use Types Packs/Day Years Used Date Smoking Tobacco: Former Cigarettes 1 5 0 04/20/1980 - 04/24/1985 Smokeless Tobacco: Never Alcohol Use Standard Drinks/Week Comments Yes 6 (1 standard drink = 0.6 oz pur e alcohol) vodka and soda Child or Family Care Answer Date Record ed Do you have problems with on e of the following making it difficult for you to work, study, or receive health care? No 02/07/2024 Education Answer Date Recorded Are you interested in help w ith more adult education (for example, completing high school, GED, job training, learning the [place] language, technical skills, or developing parenting skills)? No 02/07/2024 Are you concerned about learning? Not on file 02/07/2024 No 02/07/2024 Yes 02/07/2024 Food Answer Date Recorded Within the past 6 months we worried whether our food would run out before we got money to buy more. Never True 02/07/2024 Within the past 6 months the food we bought just didn't last and we didn't have enough money to get more. Never True Residential Stability Answer Date Recor ded What is your housing situation today? I have torrey colt 02/07/2024 How many times have you move d in the past 12 months? Zero (I did not move) 02/07/2024 Paying for Meds Answer Date Recorded Do you have trouble paying for medicines? No 02/07/2024 Paying Utility Bills Answer Date Record ed Do you have trouble paying your heating or elect ricity bill? No 02/07/2024 Transportation Answer Date Recorded Has the lack of transportati on kept you from medical appointments or from getting medications? No 02/07/2024 Unemployment Answer Date Recorded Are you currently unemployed or working on a part-time or temporary basis, and looking for work? No 01/08/2022 Digital Access Answer Date Recorded No 02/07/2024 Yes 02/07/2024 Do you have reliable internet access at home? Ye s 02/07/2024 Do you have a device (e.g., phone, tablet, computer) with a working camera? Yes 02/07/2024 Intimate Partner Violence Answer Date R ecorded Denied Basic Needs Not on file 05/20/2024 In the past 12 months have y ou been in a relationship with a person who hurts, threatens, or tries to control you? No 05/20/2024 Worried food would run out Not on file 05/20 In the past 12 months have y ou been in a relationship with a person who hurts, threatens, or tries to control you? No 05/20/2024 Comments Unknown Sex and Gender Information Value Date Recorded Sex Assigned at Female 01/05/2021 2:35 PM EST Legal Sex Female 10:34 PM EDT Gender Identity Female 01/05/2021 2:35 PM EST Sexual Orientation Straight 01/05/2021 2: 35 PM EST documented as of this encounter Progress Notes * Bina Wilks PA-C - 09/26/2024 1:52 PM EDT Referral signed. Ángela Wilks PA-C Virtual Clinic Support * Anna Desir - 09/26/2024 11:48 AM EDT Name of the office where the patient has been seen/requests to be seen: [facility] 2. Reason for referral/specialist appointment and the diagnosis code: C44.622 Squamous cell carcinoma of skin of right upper limb, including shoulder 2A. Have you seen this provider before for this same problem? 2B. If this is a new problem, is your PCP aware of your symptoms? 3. Date of appointment(s): upcoming 4. Name of specialist provider: Dr Anshu Mena 5. NPI number to enter for referral authorization (enter n/a if not available): [id number] 6. Number of visits requested for referral: 12 7. Fax number of specialist office to send referral authorization: [phone] Central Support Heavy Equipment Engine Mechanic (Please do not reply to this user; this inbox is not monitored.) Thank you. documented in this encounter Plan of Treatment Upcoming Encounters Date Type Department Care Team (Late st Contact Info) Description 05/28/2025 3:00 PM EDT Office Visit [facility] Internal Medicine [address] [place] [address] Demarco Ott MD [address] [place] [address] Scheduled Referrals Name Type Priority Associated Diagnoses Order Schedule External Referral to Dermatology ([facility]) Outpatient Referral Routine Squamous cell carcinoma of skin of right upper limb, including shoulder Ordered: 09/26/2024 documented as of this encounter Visit Diagnoses Diagnosis Squamous cell carcinoma of skin of right upper limb, including shoulder- Primary documented in this encounter Additional Health Concerns Assessment Noted Time PHQ-9 Depression Total Score: 4 01/20/20 23 2:42 PM EST PHQ-2 Depression Total Score: 2 05/21/19 25 10:50 AM EDT documented as of this encounter Care Teams Lead Supply Worker Relationship Specialty Start Date End Date Demarco Ott MD [address] [place] [address] PCP - General 02/23/17 Demarco Ott MD [address] [place] [address] Insurance Assigned Provider 11/26/23 documented as of this encounter Additional Source Comments The information contained in this document represents components of the legal health record. It is not the complete legal health record.[facility]
--- OUTSIDE RECORDS SUMMARY | 2024-10-01 14:15 | XMS_ITS | Patient Health Record ---
Author Organization [facility] Address [address] [place] [address] Care Team Providers Care Photogrammetrist Name Role Phone Demarco Ott MD Primary Care Provider OLGA LIDIA Dueñas Unavailable [phone] Allergies Allergen (clinical drug ingredient) Drug/Non Drug Allergy documented on EMR Reaction Allergy Type Onset Date Status ibuprofen Ibuprofen Unknown Drug Allergy Active Reason For Referral No Information Medications Medication SIG (Take, Route, Fr equency, Duration) Notes Start Date End Date Status Vitamin D Active [facility] Active Toprol XL Active hydroCHLOROthiazide Active Social History Tobacco Use: Social History Observation Description Date Details (start date - stop date) Former Smoker NA - NA Tobacco Use/Smoking Question Answer Notes Current Smoking Status: former smoker Plan Of Treatment No Information Insurance Providers Payer Name Payer Address Payer Phone Subscriber Number Group Number Insured Name Patient Relationship to Insured Coverage Start Date Coverage End Date [facility] [address] [facility] [place] [id number] [phone] [id number] Peyton Peterson Self - patient is the insured Medical (General) History Medical History History ICD Code Hypertension Surgical History Surgery Date(Month/Year) Breast Reduction 06/2020 ablation 2016 cataract removal 2019
--- OUTSIDE RECORDS SUMMARY | 2024-10-01 14:15 | XMS_ITS | Patient Health Record ---
Author Organization [facility] Address [address] [place] [phone] Care Team Providers Care Adult Care Manager Name Role Phone Demarco Ott MD Primary Care Provider Onel Rosas Unavailable [phone] Allergies Allergen (clinical drug ingredient) Drug/Non Drug Allergy documented on EMR Reaction Allergy Type Onset Date Status Non-steroidal anti-inflammatory agent (FN) NSAIDs EXCEPT ALEVE/IRRITATES STOMACH Drug Allergy Active ibuprofen Ibuprofen GI UPSET Drug Allergy Active Reason For Referral No Information Medications Medication SIG (Take, Route, Frequency, Duration) Notes Start Date End Date Status hydroCHLOROthiazide 25 MG Oral for 90 Active Vitamin D 25 MCG (1000 UT) 1 tablet Oral ly Once a day Active Toprol XL 50 MG 1 tablet Orally Once a day Active [facility] Active Immunizations Vaccine Route Administration Date Status Comme nts Influenza Unknown 10/21/2020 Administered Social History Tobacco Use: Social History Observation Description Date Details (start date - stop date) Former Smoker NA - NA Tobacco Use/Smoking Question Answer Notes Patient is a former smoker How long has it been since you last smoked? > 10 years Alcohol Screen Question Answer Notes Did you have a drink contain ing alcohol in the past year? Yes How often did you have a dri nk containing alcohol in the past year? 2 to 3 times a week (3 points) How many drinks did you have on a typical day when you were drinking in the past year? 1 or 2 drinks (0 point) How often did you have 6 or more drinks on one occasion in the past year? Never (0 point) Points 3 Interpretation Positive Section Notes: Nonsmoker; no sig alcohol Problems Problem Type SNOMED Code ICD Code Onset Dates Problem Status W/U Status Risk Notes Problem Colon cancer screening (539458546) Colon cancer screening (Z12.11) Active confirmed Problem Rectal bleeding (59076733) Rectal bleeding (K62.5) Active confirmed Problem History of polyp of colon (situation) (934020829) Personal history of colonic polyps (Z86.010) Active confirmed Problem Diverticulosis of colon (871312809) Diverticulosis of colon (K57.30) Active confirmed Problem Family history of malignant neoplasm of gastrointestinal tract (981470244) Family history of colon cancer in mother (Z80.0) Active confirmed Plan Of Treatment Future Test Test Name Order Date COLONOSCOPY 10/07/2021 Insurance Providers Payer Name Payer Address Payer Phone Subscriber Number Group Number Insured Name Patient Relationship to Insured Coverage Start Date Coverage End Date [facility] [address] [place] [phone] [id number] SANGEETHA MATHEWS Self - patient is the insured Medical (General) History Medical History History ICD Code Hypertension Denies SC,DM,CVA,Lung disease,renal dise ase Hx of Ventricular Tachycardia Arrhythmia --Cardiac ablation Negative colonoscopies in 09 07, 2009, and [address] Karimi. The colonoscopy in 2004 did have a small polyp that was removed but was non-adenomatous. Surgical History Surgery Date(Month/Year) KNEE ARTHOSCOPY 03/2021 BUNIONECTOMY 2010 R SHOULDER 2016 BTL D&C
== END 2024-10-01 14:21 | disposition home or self-care (01) ==
LOC: HO.HCS 13:26
PROVIDERS: PCP Internal Medicine; Visit Provider Internal Medicine Cardiovascular Disease
DX: I47.20 Ventricular tachycardia, unspecified (principal); I10 Essential (primary) hypertension
CPT/HCPCS: 93010; 99214

== ENCOUNTER → 2024-10-01 13:25 | Outpatient (BNVA) | payer BC, SELFPAY | PROVIDERS: PCP Internal Medicine; Visit Provider Internal Medicine Cardiovascular Disease | DX: I47.20 Ventricular tachycardia, unspecified (principal); I10 Essential (primary) hypertension; Z79.899 Other long term (current) drug therapy | CPT/HCPCS: 93005 ==